=== PATIENT | male | born 1975 | race American Indian/Alaskan Native ===

== ENCOUNTER 2021-02-20 10:56 | Emergency (ER) | payer SELFPAY ==
--- NOTE | 2021-02-20 11:01 | Emergency Department Report ---
ED Shortness of Breath HPI - General Time Seen by Provider: 02/20/21 10:58 Source: patient, EMS Mode of arrival: Ambulatory Limitations: No Limitations - History of Present Illness Initial Comments: Chief complaint shortness of breath, was a little scared 45-year-old male with no sent past medical history presents with cough shortness of breath began this morning. Gradual onset. Patient transported via EMS from work. He works as an industrial cleaning. Nonproductive cough. No recent travel. No sick contact. He lives with his fiance and children. No one sick at home. He denies fever, loss of taste or smell, chest pain, leg pain. He denies fever or body aches. Denies recent travel oxygen saturation 94% via EMS Patient is not vaccinated against COVID-19. Has not been previously diagnosed with COVID-19. Complaint: shortness of breath, cough -: Gradual, This morning Severity: severe Consistency: constant Improves With: nothing Worsens With: exertion Associated Symptoms: denies other symptoms ED Review of Systems ROS: Stated complaint: Other details as noted in HPI Comment: All other systems reviewed and negative Constitutional: denies: chills, fever, malaise Respiratory: cough, shortness of breath. denies: wheezing Cardiovascular: denies: chest pain Gastrointestinal: denies: abdominal pain, nausea, vomiting ED Course Vital Signs 02/20/21 02/20/21 10:59 11:01 Temperature 98.7 F Pulse Rate 86 Respiratory 16 Rate Blood Pressure 143/93 [Left] O2 Sat by Pulse 97 99 Oximetry ED Medical Decision Making - Lab Data Result diagrams: 02/20/21 11:17 02/20/21 11:17 - Radiology Data Radiology results: report reviewed Patient Name: ERYN TROTTER Gender: Male Date of : 1975 Referring Provider: DUDLEY PACK Organization: [facility] Accession Number: [id number] Requested Date: February 20, 2021 11:03 Report Status: Final Requested Procedure: 1 Procedure Description: XR chest 1V ap Modality: XR Findings Reporting MD: Toni Delacruz Dictation Time: February 20, 2021 10:50 Lead Data Entry Operator: Not available Manager Pharmaceutical Date: CHEST 1 VIEW 02/20/2021 10:37 AM INDICATION / CLINICAL INFORMATION: Cough, shortness of breath and hypoxia. COMPARISON: None available. FINDINGS: SUPPORT DEVICES: None. HEART / MEDIASTINUM: The heart size and pulmonary vasculature are normal. LUNGS / PLEURA: No significant pulmonary or pleural abnormality. No pneumothorax. ADDITIONAL FINDINGS: No significant additional findings. IMPRESSION: No acute findings. Signer Name: Toni Delacruz MD Signed: 02/20/2021 10:50 AM Workstation Name: [id number] - Medical Decision Making Shortness of breath cough with transient hypoxia healthy gentleman with no significant medical history PERC negative for PE suspected COVID-19 recommended outpatient testing fianne at the bedside understood recommendations appropriate for discharge she is currently symptom-free Critical care attestation.: If time is entered above; I have spent that time in minutes in the direct care of this critically ill patient, excluding procedure time. ED Disposition Clinical Impression: Suspected COVID-19 virus infection Disposition: HOME / SELF CARE / HOMELESS Is pt being admited?: No Does the pt Need Aspirin: No Condition: Stable Instructions: COVID-19 Frequently Asked Questions Additional Instructions: Please obtain COVID-19 test near your home as discussed. Referrals: CHARITY TORRES MD [Staff Physician] - as needed Forms: Work/School Release Form(ED)
[2021-02-20 11:28] LABS: Basophils % (Auto) 0.4 % (0.0-1.8); Eosinophils # (Auto) 0.2 K/mm3 (0.0-0.4); Eosinophils % (Auto) 3.6 % (0.0-4.3); Hematocrit 42.4 % (35.5-45.6); Lymphocytes # (Auto) 1.5 K/mm3 (1.2-5.4); Lymphocytes % (Auto) 35.1 % (13.4-35.0); Mean Corpuscular HGB Conc 33 % (32-34); Mean Corpuscular Volume 92 fl (84-94); Monocytes # (Auto) 0.4 K/mm3 (0.0-0.8); Monocytes % (Auto) 8.9 % (0.0-7.3); Platelet Count 185 K/mm3 (140-440); Red Blood Count 4.59 M/mm3 (3.65-5.03); Red Cell Distribution Width 12.4 % (13.2-15.2)
[2021-02-20 11:50] LABS: Alanine Aminotransferase 24 units/L (7-56); Albumin 4.2 g/dL (3.9-5); BUN/Creatinine Ratio 15; Blood Urea Nitrogen 15 mg/dL (9-20); Hemolysis Index 6
--- NOTE | 2021-02-20 11:55 | XRay Report ---
CHEST 1 VIEW 02/20/2021 10:37 AM INDICATION / CLINICAL INFORMATION: Cough, shortness of breath and hypoxia. COMPARISON: None available. FINDINGS: SUPPORT DEVICES: None. HEART / MEDIASTINUM: The heart size and pulmonary vasculature are normal. LUNGS / PLEURA: No significant pulmonary or pleural abnormality. No pneumothorax. ADDITIONAL FINDINGS: No significant additional findings. IMPRESSION: No acute findings. Signer Name: Toni Delacruz MD Signed: 02/20/2021 11:50 AM Workstation Name: [id number]
[2021-02-20 12:16] VITALS: BP 130/81
== END 2021-02-20 12:15 | disposition home or self-care (01) ==
LOC: ED 10:56
DX: R05.9 Cough, unspecified (principal); R06.02 Shortness of breath
CPT/HCPCS: 36415; 71045; 80053; 85025; 99284